=== PATIENT | male | born 1985 | race Caucasian/White ===

== ENCOUNTER 2017-12-08 17:19 | Emergency (ER) | payer BC, MEDICAID ==
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
[2017-12-08 19:06] VITALS: BP 115/60
--- NOTE | 2017-12-08 20:49 | EKG REPORT ---
SEVERITY:- BORDERLINE ECG - SINUS RHYTHM NONSPECIFIC ANTERIOR ST-T CHANGES : Confirmed by: Mir Cedeño MD 08-Dec-2017 20:48:57
== END 2017-12-08 19:27 | disposition home or self-care (01) ==
LOC: ER 17:19
DX: R41.9 Unspecified symptoms and signs involving cognitive functions and awareness (principal); S06.9X9S Unspecified intracranial injury with loss of consciousness of unspecified duration, sequela; W34.00XS Accidental discharge from unspecified firearms or gun, sequela; R45.4 Irritability and anger; F17.200 Nicotine dependence, unspecified, uncomplicated
CPT/HCPCS: 36415; 93005; 93010; 99285

== ENCOUNTER 2020-10-17 12:26 | Emergency (ER) | payer BC, MEDICAID ==
[2020-10-17 12:52] VITALS: BP 130/74
--- NOTE | 2020-10-17 13:16 | ER Document Report ---
ED Medical Screen (RME) - General Chief Complaint: Hyperventilation Stated Complaint: POSSIBLE PANIC ATTACK Time Seen by Provider: 10/17/20 13:11 Primary Care Provider: MITA INIGUEZ MD [Primary Care Provider] - Follow up as needed Mode of Arrival: Ambulatory Information source: Patient Notes: HPI; 35-year-old male presents to the emergency room complaining of shortness of breath that started earlier today around 11:30. Patient states "I am having a panic attack". Denies any new stressors. No medications for symptoms. Denies any chest pain. Denies any COVID-19 exposure. Denies any suicidal homicidal ideation. Complaining of tingling in his extremities. PE: Alert and oriented x3. Lungs: Clear to auscultation without rales, rhonchi, wheezes. Heart: Regular rate rhythm without murmurs, rubs, gallops. Patient hyperventilating in triage. Will place on oxygen input. I have greeted and performed a rapid initial assessment of this patient. A comprehensive ED assessment and evaluation of the patient, analysis of test results and completion of the medical decision making process will be conducted by additional ED providers. I have specifically instructed the patient or family members with the patient to immediately return to any nursing staff should anything change in the patient's condition or with their chief complaint. TRAVEL OUTSIDE OF THE [place] IN LAST 30 DAYS: No - Related Data Allergies/Adverse Reactions: No Known Allergies Allergy (Verified 10/17/20 13:05) Past Medical History Renal/ Medical History: Denies: Hx Peritoneal Dialysis GI Medical History: Reports: Hx Gastroesophageal Reflux Disease Psychiatric Medical History: Reports: Hx Depression Traumatic Medical History: Reports: Hx Traumatic Brain Injury Infectious Medical History: Reports: Hx MRSA - Immunizations Hx Diphtheria, Pertussis, Tetanus Vaccination: Yes Physical Exam - Vital signs Vitals: Temp Pulse Resp BP Pulse Ox 98.9 F 86 24 H 130/74 H 100 10/17/20 12:49 10/17/20 12:49 10/17/20 12:49 10/17/20 12:49 10/17/20 12:49 Course - Vital Signs Vital signs: Temp Pulse Resp BP Pulse Ox 98.9 F 86 24 H 130/74 H 100 10/17/20 12:49 10/17/20 12:49 10/17/20 12:49 10/17/20 12:49 10/17/20 12:49 Doctor's Discharge - Discharge Referrals: MITA INIGUEZ MD [Primary Care Provider] - Follow up as needed
--- NOTE | 2020-10-17 14:17 | RADIOLOGY REPORT (SQ) ---
EXAM DESCRIPTION: CHEST SINGLE VIEW IMAGES COMPLETED DATE/TIME: 10/17/2020 12:35 pm REASON FOR STUDY: dyspnea COMPARISON: None. EXAM PARAMETERS: NUMBER OF VIEWS: One view. TECHNIQUE: Single frontal radiographic view of the chest acquired. RADIATION DOSE: NA LIMITATIONS: None. FINDINGS: LUNGS AND PLEURA: No opacities, masses or pneumothorax. No pleural effusion. MEDIASTINUM AND HILAR STRUCTURES: No masses. Contour normal. HEART AND VASCULAR STRUCTURES: Heart normal in size. Normal vasculature. BONES: No acute findings. HARDWARE: None in the chest. OTHER: No other significant finding. IMPRESSION: NO ACUTE RADIOGRAPHIC FINDING IN THE CHEST. TECHNICAL DOCUMENTATION: JOB ID: [id number] 2010 [employer]- All Rights Reserved Reading location - IP/workstation name: [email or web address]
--- NOTE | 2020-10-17 15:21 | ER Document Report ---
Doctor's Note Notes: 10/17/20 15:18 Was notified by nursing staff that patient would like to leave AGAINST MEDICAL ADVICE. Patient was counseled on the risks of leaving AGAINST MEDICAL ADVICE The patient has chosen to leave the facility against medical advice. The relevant issues have been reviewed and discussed with the patient and family at the bedside. At the time of this assessment there is no indication for involuntary commitment. The patient is alert, oriented, and able to express clearly their reasoning for not wanting to remain in the emergency department for further treatment. The patient is not clinically psychotic, intoxicated, and denies and suicidal ideation. Differential or suspected diagnoses based on medical screening exam: Shortness of breath, chest pain, The patient is aware of the concerning diagnoses and acknowledges understanding of the reasons for the following recommendations: Loss of life, permanent dis ability, chronic pain, worsening of condition, cardiac dysfunction, respiratory dysfunction ,loss of current lifestyle, urinary dysfunction The following recommendations/services were offered and refused: Further testing and evaluation The following risks were explained: , permanent disability, loss of current lifestyle, respiratory dysfunction, urinary dysfunction, chronic pain, worsening condition. Clinical impression: Patient is competent to make decisions regarding the medical that is being offered. Discharge - Discharge Clinical Impression: Left against medical advice Dyspnea Qualifiers: Dyspnea type: unspecified Qualified Code(s): R06.00 - Dyspnea, unspecified Condition: Stable Disposition: AGAINST MEDICAL ADVICE Instructions: Dyspnea, Nonspecific ([facility]) Additional Instructions: You have requested to leave AGAINST MEDICAL ADVICE. You have been counseled against the risks of leaving AGAINST MEDICAL ADVICE including but not limited to , worsening condition, chronic pain, loss of current lifestyle, respiratory dysfunction, cardiac dysfunction, chronic pain. You are welcome to return to the emergency room at anytime for further evaluation and treatment. Referrals: MITA INIGUEZ MD [Primary Care Provider] - Follow up as needed
== END 2020-10-17 15:25 | disposition left against medical advice (07) ==
LOC: ER 12:26
DX: R06.00 Dyspnea, unspecified (principal); Z86.14 Personal history of Methicillin resistant Staphylococcus aureus infection; Z87.820 Personal history of traumatic brain injury
CPT/HCPCS: 71045; 99283